=== PATIENT | male | born 1955 | race Caucasian/White ===

== ENCOUNTER 2023-02-04 20:05 | Emergency (ER) | payer MEDICARE, OTHER ==
[2023-02-04] MEDS ORDERED: Acetaminophen/oxyCODONE 325-5 MG Tab PO ONE (22:14)
[2023-02-04] MEDS ORDERED: Orphenadrine 100 MG Tab.ER PO ONE (22:14)
== END 2023-02-04 22:38 | disposition home or self-care (01) ==
LOC: JD.ED 20:05
DX: M25.512 Pain in left shoulder (principal); K21.9 Gastro-esophageal reflux disease without esophagitis; I10 Essential (primary) hypertension; Z79.899 Other long term (current) drug therapy
CPT/HCPCS: 73030; 99284; A9270